=== PATIENT | female | born 1965 | race Caucasian/White ===

== ENCOUNTER → 2016-08-20 | Outpatient (CLI) | payer OTHER ==
[~2016-08-20] MED LIST: ACETAMINOPHEN650 M4 GT; ALBUTEROL MININEB NEB; ALBUTEROL17 GM; ALBUTEROL17 GM INH; ALL DAY ALLERGY10 M3 PO; AMITRYPTYLINE PO; AMOXICILLIN PO; ASPIRIN PO; ASPIRIN81 MG PO; BACLOFEN10 MG; BACLOFEN10 MG GT; BACLOFEN10 MG PO; BACLOFEN20 MG PO; BACTRIM DS TABL1 TAB PO; BIOSUPP473 ML GT; BUMEX PO; CETIRIZINE HCL10 MG PO; CIPRO PO; CORGARD PO; CORGARD40 MG PO; CYMBALTA20 M1; DIASTAT10 MG PR; DUONEB 2.5-0.5 M3 ML NEB; FAST RELIEF LAX10 MG PR; FLAGYL PO; FLEXERIL PO; FLEXERIL10 MG PO; FLONASE 0.05% N16 G1; FLOVENT HFA12 GM INH; GABAPENTIN600 MG PO; HYDROCODON-ACE1 EAC5 PO; IBUPROFEN PO; KEFLEX PO; KEPPRA250 MG GT; KETOPROFEN PO; LACTULOSE10 G/15 M3 GT; LEVAQUIN; LIPITOR PO; LOPRESSOR GT; LORTAB 10-5001 EACH PO; LORTAB 101 TAB 10/5 PO; LORTAB 5-325 M1 EACH PO; LYRICA; LYRICA75 MG PO; MACROBID100 MG PO; MEDROL DOSEPAK4 MG PO; MORGIDOX100 MG PO; NEURONTIN PO; NEURONTIN600 MG PO; NEXIUM GT; PHENERGAN PO; PHENOBARBITAL97.2 MG GT; PREDNISONE; PREDNISONE PO; PREDNISONE10 MG/DOSE PO; PRILOSEC PO; PRILOSEC20 M1 PO; PROTONIX PO; PROVENTIL0.83 MG/ML INH; SIMVASTATIN40 MG PO; SINGULAIR GT; SODIUM BICARBO650 MG GT; TIZANIDINE PO; TOPIRAMATE200 MG GT; ULTRAM PO; VERAMYST10 GM; VIBRAMYCIN100 M1 DOB; VIBRAMYCIN100 M1 PO; VIMPAT100 MG GT; VITAMIN B COMP1 EACH PO; VITAMIN D400 UNI1 GT; VOLTAREN75 MG PO; ZANAFLEX PO; ZANTAC PO; ZOCOR PO
--- NOTE | ~2016-08-20 | CT113 ---
[facility] A Service of [facility] RADIOLOGY TEXT RESULTS PATIENT: PAL SANTIAGO LOCATION: [facility] #: [id number] : [birth year] UNIT #: [id number] AGE: [address]: Raymon Rosenbaum MD SEX: F ORDER DR: [id number] [facility] [address] [place], [place] [address] [id number] O MR#: [id number] Acc #: [id number] NAME: PAL SANTIAGO. : 1965 SEX: F STUDY DATE/TIME: 08/20/2016 9:35 UNIT: [facility] ROOM: STUDY DESCRIPTION: CT Sinuses Wo Contrast Attending Physician: Raymon Rosenbaum III, M.D. Ordering Physician: Raymon Rosenbaum III, M.D. Primary Care Physician: Lorrie Espino A.P.R.N. MEDICAL IMAGING REPORT This report is preliminary unless electronic signature is present EXAM CT of the paranasal sinuses without contrast. DATE OF EXAM Performed on 08/20/2016. CLINICAL HISTORY 51-year-old female with chronic sinus disease and sinus pressure since June 11, 2016. TECHNIQUE NOTE: This CT exam was performed with one or more of the following radiation dose reduction techniques: automatic exposure control, adjustment of mA and/or kV according to patient size, and iterative reconstruction. FINDINGS There is complete opacification of the right maxillary sinus and circumferential mucosal thickening in the left maxillary sinus. The sphenoid sinuses are clear as are the ethmoid air cells. No frontal sinus opacity is seen. Prior sinus surgery is noted with some partial ethmoidectomy, and bilateral antral windows. The nasal septum is slightly deviated to the right of approximately 2 mm. No orbital lesions are seen. IMPRESSION Chronic maxillary sinusitis and postsurgical changes from a previous endoscopic sinus surgery. In comparison to 08/16/2007, there has been worsening of the sinus disease in the maxillary regions. Dictated by... Werner Keane M.D. [facility] A Service of [facility] RADIOLOGY TEXT RESULTS PATIENT: PAL SANTIAGO LOCATION: [facility] #: [id number] : [birth year] UNIT #: [id number] AGE: [address]: Raymon Rosenbaum MD SEX: F ORDER DR: THIS IS AN ELECTRONICALLY VERIFIED REPORT Werner Keane M.D. at 08/21/2016 8:44 PM [place] TD: 08/20/2016 23:39 JOB #: [id number] MEDICAL IMAGING REPORT COPY
== END | disposition home or self-care (01) ==
LOC: CCAT 09:06
DX: J32.4 Chronic pansinusitis (principal); J32.0 Chronic maxillary sinusitis; Z98.890 Other specified postprocedural states
CPT/HCPCS: 70486

== ENCOUNTER → 2016-08-20 | Outpatient (CLI) | payer OTHER ==
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
== END | disposition home or self-care (01) ==
LOC: CRAD 09:16
DX: M54.9 Dorsalgia, unspecified (principal)
CPT/HCPCS: 72080

== ENCOUNTER 2016-09-15 17:28 | Emergency (ER) | payer OTHER ==
--- NOTE | ~2016-09-15 | CR72 ---
[facility] A Service of [facility] RADIOLOGY TEXT RESULTS PATIENT: PAL SANTIAGO LOCATION: SED : 65 UNIT #: [id number] AGE: [address]: Magdiel Chung MD SEX: F ORDER DR: [id number] [place] [id number] E MR#: [id number] Acc #: [id number] NAME: PAL SANTIAGO : 1965 SEX: F STUDY DATE/TIME: 09/15/2016 17:31 UNIT: SED ROOM: STUDY DESCRIPTION: CR Chest Single View Portable Attending Physician: Magdiel Chung M.D. Ordering Physician: Magdiel Chung M.D. Primary Care Physician: Lorrie Espino A.P.R.N. MEDICAL IMAGING REPORT This report is preliminary unless electronic signature is present. EXAM Portable chest HISTORY Shortness of air and cough for 3 days. FINDINGS The cardiac size and pulmonary vascularity are normal. No infiltrates or effusions. Mild left upper thoracic curve. Remainder of the chest is negative. IMPRESSION No acute findings and no active disease. Dictated by... Jay Mendosa M.D. THIS IS AN ELECTRONICALLY VERIFIED REPORT Jay Mendosa M.D. at 09/16/2016 3:03 PM JANIS/dejon TD: 09/16/2016 08:49 JOB #: [id number] MEDICAL IMAGING REPORT Page 1 of 1
== END 2016-09-15 18:51 | disposition home or self-care (01) ==
LOC: SED 17:28
DX: J45.901 Unspecified asthma with (acute) exacerbation (principal); J06.9 Acute upper respiratory infection, unspecified; J45.909 Unspecified asthma, uncomplicated; K21.9 Gastro-esophageal reflux disease without esophagitis; Z90.49 Acquired absence of other specified parts of digestive tract; Z98.51 Tubal ligation status; F17.200 Nicotine dependence, unspecified, uncomplicated; Z88.2 Allergy status to sulfonamides; Z88.8 Allergy status to other drugs, medicaments and biological substances; Z79.899 Other long term (current) drug therapy; Z98.2 Presence of cerebrospinal fluid drainage device
CPT/HCPCS: 71010; 94640; 96372; 99283; 99284; J1100